=== PATIENT | female | born 1980 | race Caucasian/White ===

== ENCOUNTER 2022-03-09 10:18 | Outpatient (CLI) | payer OTHER ==
[2022-03-09 14:01] LABS: BASOPHILS # (AUTO) 0.1 10^3/uL (0.0-0.1); BASOPHILS % (AUTO) 0.6 %; EOSINOPHILS # (AUTO) 0.1 10^3/uL (0.0-0.7); EOSINOPHILS % (AUTO) 0.9 %; HCT - HEMATOCRIT 41.9 % (37.0-47.0); HGB - HEMOGLOBIN 12.6 g/dL (12.0-16.0); LYMPHOCYTES # (AUTO) 1.7 10^3/uL (1.5-3.5); LYMPHOCYTES % (AUTO) 16.3 %; MEAN CORPUSCULAR HEMOGLOBIN 26.6 pg (27.0-31.0); MEAN CORPUSCULAR HGB CONC 30.1 g/dL (32.0-36.0); MEAN CORPUSCULAR VOLUME 88.4 fL (81.0-99.0); MONOCYTES # (AUTO) 0.8 10^3/uL (0.0-1.0); MONOCYTES % (AUTO) 7.8 %; NEUTROPHILS # (AUTO) 7.9 10^3/uL (1.5-6.6); NEUTROPHILS % (AUTO) 74.1 %; PLT - PLATELET COUNT 282 10^3/uL (130-450); RED BLOOD COUNT 4.74 10^6/uL (4.20-5.40); RED CELL DISTRIBUTION WIDTH 13.5 % (12.0-15.0); WHITE BLOOD COUNT 10.6 x10^3/uL (4.8-10.8)
[2022-03-09 14:41] LABS: THYROID STIMULATING HORMONE 1.23 uIU/mL (0.34-5.60)
[2022-03-09 14:43] LABS: FREE T3 3.89 pg/mL (2.5-3.9); FREE T4 (FREE THYROXINE) 0.87 ng/dL (0.58-1.64)
[2022-03-09 14:48] LABS: FERRITIN 55.7 ng/mL (11.0-306.8)
[2022-03-09 14:50] LABS: ALBUMIN 4.6 g/dL (3.2-5.5); ALBUMIN/GLOBULIN RATIO 1.3 (1.0-2.2); ALKALINE PHOSPHATASE 55 IU/L (42-121); ALT ALANINE AMINOTRANSFERASE 23 IU/L (10-60); AST ASPARTATE AMINOTRANSFERASE 18 IU/L (10-42); BILIRUBIN,TOTAL 0.8 mg/dL (0.2-1.0); BUN - BLOOD UREA NITROGEN 10 mg/dL (6-20); CALCIUM 8.8 mg/dL (8.5-10.3); CARBON DIOXIDE - CO2 27 mmol/L (21-32); CHLORIDE 99 mmol/L (101-111); CHOL/HDL RATIO 4.1 (<4.4); CHOLESTEROL 156 mg/dL; CREATININE 0.4 mg/dL (0.4-1.0); CRP HIGH SENSITIVITY 11.3 mg/L; GFR - MDRD 178 (>89); GLUCOSE 80 mg/dL (70-100); HDL CHOLESTEROL 38 mg/dL; LDL CHOLESTEROL,CALCULATED 95 mg/dL; LDL/HDL RATIO 2.5 (<4.4); POTASSIUM 3.7 mmol/L (3.5-5.0); SODIUM 135 mmol/L (135-145); TOTAL PROTEIN 8.2 g/dL (6.7-8.2); TRIGLYCERIDES 116 mg/dL; VLDL CHOLESTEROL 23 mg/dL
[2022-03-09 21:00] LABS: ESTIMATED AVERAGE GLUCOSE 117 mg/dL (70-100); HEMOGLOBIN A1c% 5.7 % (4.27-6.07)
== END 2022-03-09 10:19 | disposition home or self-care (01) ==
LOC: LAB.S 10:18
PROVIDERS: ATTEND Family Medicine
DX: E78.5 Hyperlipidemia, unspecified (principal); R53.83 Other fatigue; E03.9 Hypothyroidism, unspecified; D64.9 Anemia, unspecified
CPT/HCPCS: 36415; 80053; 80061; 82728; 83036; 83090; 83721; 84439; 84443; 84480; 84481; 84482; 85025; 86141

== ENCOUNTER 2022-09-20 12:33 | Outpatient (CLI) | payer OTHER ==
[2022-09-20 14:44] LABS: BASOPHILS # (AUTO) 0.1 10^3/uL (0.0-0.1); BASOPHILS % (AUTO) 0.6 %; EOSINOPHILS # (AUTO) 0.1 10^3/uL (0.0-0.7); EOSINOPHILS % (AUTO) 1.2 %; HCT - HEMATOCRIT 37.6 % (37.0-47.0); HGB - HEMOGLOBIN 12.2 g/dL (12.0-16.0); LYMPHOCYTES % (AUTO) 21.5 %; MEAN CORPUSCULAR HEMOGLOBIN 27.6 pg (27.0-31.0); MEAN CORPUSCULAR HGB CONC 32.4 g/dL (32.0-36.0); MEAN CORPUSCULAR VOLUME 85.1 fL (81.0-99.0); MEAN PLATELET VOLUME 10.2 fL (7.9-10.8); MONOCYTES # (AUTO) 0.6 10^3/uL (0.0-1.0); MONOCYTES % (AUTO) 6.8 %; NEUTROPHILS # (AUTO) 6.5 10^3/uL (1.5-6.6); NEUTROPHILS % (AUTO) 69.6 %; PLT - PLATELET COUNT 283 10^3/uL (130-450); RED BLOOD COUNT 4.42 10^6/uL (4.20-5.40); RED CELL DISTRIBUTION WIDTH 13.7 % (12.0-15.0); WHITE BLOOD COUNT 9.3 x10^3/uL (4.8-10.8)
[2022-09-20 16:11] LABS: % IRON SATURATION 19 % (20-50); ALBUMIN 4.4 g/dL (3.2-5.5); ALBUMIN/GLOBULIN RATIO 1.4 (1.0-2.2); ALKALINE PHOSPHATASE 63 IU/L (42-121); ALT ALANINE AMINOTRANSFERASE 24 IU/L (10-60); AST ASPARTATE AMINOTRANSFERASE 18 IU/L (10-42); BILIRUBIN,TOTAL 0.4 mg/dL (0.2-1.0); BUN - BLOOD UREA NITROGEN 13 mg/dL (6-20); CALCIUM 9.5 mg/dL (8.5-10.3); CARBON DIOXIDE - CO2 30 mmol/L (21-32); CHLORIDE 103 mmol/L (101-111); CHOL/HDL RATIO 4.1 (<4.4); CHOLESTEROL 156 mg/dL; CREATININE 0.5 mg/dL (0.6-1.3); CRP HIGH SENSITIVITY 8.29 mg/L; GFR - MDRD 137 (>89); GLUCOSE 143 mg/dL (74-104); HDL CHOLESTEROL 38 mg/dL; IRON 65 ug/dL (50-212); LDL CHOLESTEROL,CALCULATED 85 mg/dL; LDL/HDL RATIO 2.2 (<4.4); POTASSIUM 3.6 mmol/L (3.5-4.5); SODIUM 137 mmol/L (135-145); TOTAL IRON BINDING CAPACITY 343 ug/dL (250-450); TOTAL PROTEIN 7.5 g/dL (6.4-8.9); TRANSFERRIN 245 mg/dL (203-362); TRIGLYCERIDES 164 mg/dL (48-352); VLDL CHOLESTEROL 33 mg/dL
[2022-09-20 16:23] LABS: THYROID STIMULATING HORMONE 2.09 uIU/mL (0.34-5.60)
[2022-09-20 16:29] LABS: FERRITIN 36.6 ng/mL (11.0-306.8)
[2022-09-20 19:46] LABS: ESTIMATED AVERAGE GLUCOSE 105 mg/dL (70-100); HEMOGLOBIN A1c% 5.3 % (4.27-6.07)
[2022-09-21 07:10] LABS: VITAMIN D 25-HYDROXY 37.9 ng/mL (30.0-100.0)
[2022-09-25 22:07] LABS: REVERSE T3 SERUM 13.5 ng/dL (.)
== END 2022-09-20 12:34 | disposition home or self-care (01) ==
LOC: LAB.S 12:33
PROVIDERS: ATTEND Family Medicine
DX: E78.5 Hyperlipidemia, unspecified (principal); R73.09 Other abnormal glucose; R53.83 Other fatigue; D64.9 Anemia, unspecified; E55.9 Vitamin D deficiency, unspecified; E03.9 Hypothyroidism, unspecified
CPT/HCPCS: 36415; 80053; 80061; 82306; 82626; 82728; 83036; 83540; 83721; 84439; 84443; 84466; 84480; 84481; 84482; 85025; 86141

== ENCOUNTER 2023-04-12 10:55 | Outpatient (CLI) | payer OTHER ==
[2023-04-12 15:23] LABS: BASOPHILS # (AUTO) 0.1 10^3/uL (0.0-0.1); BASOPHILS % (AUTO) 0.8 %; EOSINOPHILS # (AUTO) 0.2 10^3/uL (0.0-0.7); EOSINOPHILS % (AUTO) 1.5 %; HCT - HEMATOCRIT 40.1 % (37.0-47.0); HGB - HEMOGLOBIN 12.8 g/dL (12.0-16.0); LYMPHOCYTES # (AUTO) 2.2 10^3/uL (1.5-3.5); LYMPHOCYTES % (AUTO) 22.5 %; MEAN CORPUSCULAR HEMOGLOBIN 27.1 pg (27.0-31.0); MEAN CORPUSCULAR HGB CONC 31.9 g/dL (32.0-36.0); MEAN PLATELET VOLUME 10.5 fL (7.9-10.8); MONOCYTES # (AUTO) 0.8 10^3/uL (0.0-1.0); MONOCYTES % (AUTO) 7.8 %; NEUTROPHILS # (AUTO) 6.6 10^3/uL (1.5-6.6); NEUTROPHILS % (AUTO) 66.9 %; RED BLOOD COUNT 4.72 10^6/uL (4.20-5.40); RED CELL DISTRIBUTION WIDTH 13.6 % (12.0-15.0); WHITE BLOOD COUNT 9.9 x10^3/uL (4.8-10.8)
[2023-04-12 15:39] LABS: SLIDE REVIEW? Indicated
[2023-04-12 15:52] LABS: % IRON SATURATION 17 % (20-50); ALBUMIN 4.7 g/dL (3.2-5.5); ALBUMIN/GLOBULIN RATIO 1.4 (1.0-2.2); ALKALINE PHOSPHATASE 73 IU/L (42-121); ALT ALANINE AMINOTRANSFERASE 29 IU/L (10-60); AST ASPARTATE AMINOTRANSFERASE 19 IU/L (10-42); BILIRUBIN,TOTAL 0.4 mg/dL (0.2-1.0); BUN - BLOOD UREA NITROGEN 10 mg/dL (6-20); CALCIUM 9.9 mg/dL (8.5-10.3); CARBON DIOXIDE - CO2 27 mmol/L (21-32); CHLORIDE 103 mmol/L (101-111); CHOL/HDL RATIO 3.5 (<4.4); CHOLESTEROL 140 mg/dL; CREATININE 0.5 mg/dL (0.6-1.3); CRP HIGH SENSITIVITY 6.27 mg/L; GFR - MDRD 137 (>89); GLUCOSE 90 mg/dL (74-104); HDL CHOLESTEROL 40 mg/dL; IRON 58 ug/dL (50-212); LDL CHOLESTEROL,CALCULATED 83 mg/dL; LDL/HDL RATIO 2.1 (<4.4); POTASSIUM 3.8 mmol/L (3.5-4.5); SODIUM 138 mmol/L (135-145); TOTAL IRON BINDING CAPACITY 344 ug/dL (250-450); TOTAL PROTEIN 8.1 g/dL (6.4-8.9); TRANSFERRIN 246 mg/dL (203-362); TRIGLYCERIDES 84 mg/dL (48-352); VLDL CHOLESTEROL 17 mg/dL
[2023-04-12 16:08] LABS: THYROID STIMULATING HORMONE 2.46 uIU/mL (0.34-5.60)
[2023-04-12 16:09] LABS: FERRITIN 47.9 ng/mL (11.0-306.8)
[2023-04-12 17:16] LABS: PLATELET MORPHOLOGY PLATELET CLUMPING (NORMAL)
[2023-04-12 17:17] LABS: PLATELET ESTIMATE, MANUAL NORMAL (130-450,000) (NORMAL); RBC MORPHOLOGY (MULTIPLE) NORMAL APPEARANCE (NORMAL)
[2023-04-12 21:26] LABS: ESTIMATED AVERAGE GLUCOSE 108 mg/dL (70-100); HEMOGLOBIN A1c% 5.4 % (4.27-6.07)
== END 2023-04-12 10:56 | disposition home or self-care (01) ==
LOC: LAB.S 10:55
PROVIDERS: ATTEND Family Medicine
DX: E78.5 Hyperlipidemia, unspecified (principal); R53.83 Other fatigue; E03.9 Hypothyroidism, unspecified; D64.9 Anemia, unspecified; R73.09 Other abnormal glucose
CPT/HCPCS: 36415; 80053; 80061; 82728; 83036; 83090; 83540; 83721; 84439; 84443; 84466; 84480; 84481; 84482; 85025; 86141

== ENCOUNTER 2023-09-10 12:40 | Outpatient (CLI) | payer OTHER ==
--- NOTE | 2023-09-10 19:56 | Ultrasound Report ---
PROCEDURE: Soft Tissue Head or Neck INDICATIONS: SALIVARY GLAND SWELLING, NECK PAIN TECHNIQUE: Real-time scanning was performed of the neck in the area of swelling and pain with image documentatio n. COMPARISON: None FINDINGS: Left submandibular gland appears homogeneous. No visible ductal dilatation. There are occa sional round subcentimeter hypoechoic nodules without increased vascularity. A few reniform lymph nod es with normal morphology and vascularity are present. IMPRESSION: No abnormalities in the area of pain. If there is ongoing concern for salivary gland abnormality such as stone or inflammation, CT of the n mitzy soft tissues is recommended. Reviewed by: Adriana Hendrickson MD on 09/10/2023 7:55 PM PDT Approved by: Adriana Hendrickson MD on 09/10/2023 7:55 PM PDT Station ID: [id number]
== END 2023-09-10 12:41 | disposition home or self-care (01) ==
LOC: DI 12:40
PROVIDERS: ATTEND Family Medicine
DX: R22.1 Localized swelling, mass and lump, neck (principal); K11.8 Other diseases of salivary glands; M54.2 Cervicalgia